=== PATIENT | female | born 1970 | race Caucasian/White ===

== ENCOUNTER 2018-01-31 12:51 | Emergency (ER) | payer BC ==
[2018-01-31 13:01] VITALS: BP 123/76
--- NOTE | 2018-01-31 13:15 | UC ---
Complaint Female HPI - HPI Summary HPI Summary: 47-year-old female presents with onset of dysuria, frequency, and urgency this morning. States symptoms have progressively worsened throughout the day. She denies any fevers, chills, back or flank pain, abdominal pain, foul-smelling or discolored urine, hematuria, or vaginal discharge. Last menstrual period was 5 days ago. with vasectomy. - History Of Current Complaint Chief Complaint: UCGU Stated Complaint: URINARY ISSUE Time Seen by Provider: 01/31/18 13:04 Hx Obtained From: Patient Hx Last Menstrual Period: 01/24/18 ?: No Onset/Duration: Gradual Onset Timing: Constant Severity Initially: Mild Severity Currently: Mild Pain Intensity: 3 - Risk Factors Ectopic Risk Factor: Negative Ovarian Torsion Risk Factor: Negative - Allergies/Home Medications Allergies/Adverse Reactions: Allergies Allergy/AdvReac Type Severity Reaction Status Date / Time No Known Allergies Allergy Verified 01/31/18 13:01 PMH/Surg Hx/FS Hx/Imm Hx - Additional Past Medical History Additional PMH: Noncontributory - Surgical History Surgical History: None - Family History Known Family History: Positive: Other - Noncontributory - Social History Occupation: Employed Part-time Lives: With Family Alcohol Use: None Substance Use Type: None Smoking Status (MU): Never Smoked Tobacco Review of Systems Constitutional: Negative Genitourinary: Dysuria, Frequency, Urgency Is Patient Immunocompromised?: No All Other Systems Reviewed And Are Negative: Yes Physical Exam Triage Information Reviewed: Yes Appearance: Well-Appearing, No Pain Distress, Well-Nourished Vital Signs: Initial Vital Signs Temp 98.1 F 01/31/18 12:57 Pulse 69 01/31/18 12:57 Resp 16 01/31/18 12:57 BP 123/76 01/31/18 12:57 Pulse Ox 99 01/31/18 12:57 Vital Signs Reviewed: Yes Respiratory: Positive: No respiratory distress Abdomen Description: Positive: Nontender, No Organomegaly, Soft. Negative: CVA Tenderness (R), CVA Tenderness (L) Bowel Sounds: Positive: Present Neurological: Positive: Alert Skin Exam: Normal Diagnostics - Laboratory Diagnostic Studies Completed/Ordered: Point of care urinalysis shows positive leukocytosis esterase and blood Complaint Female Dx - Course Course Of Treatment: 47-year-old female with onset of urinary tract infection symptoms this morning. [id number] urinalysis shows positive leukocyte esterase and blood. We will treat with nitrofurantoin twice a day for 5 days. Pyridium 1 tab 3 times a day for 2 days. Follow-up with primary care provider as needed. - Differential Dx/Diagnosis Provider Diagnoses: acute urinary cystits with hematuria Discharge - Sign-Out/Discharge Documenting (check all that apply): Patient Departure - Discharge Plan Condition: Stable Disposition: HOME Prescriptions: Nitrofurantoin Macrocrystal [Nitrofurantoin] 100 mg PO BID #10 capsule Phenazopyridine TAB* [Pyridium 100 mg TAB*] 100 mg PO TID #6 tab Patient Education Materials: Urinary Tract Infection in Women (DC) Referrals: Erwin Grady MD [Primary Care Provider] - If Needed Additional Instructions: Take antibiotics as prescribed. Take Pyridium 1 tab 3 times a day for the next 2 days. Be aware that this will turn her urine orange. We will send a urine culture today to see what bacteria grossly out and make sure that it is sensitive to the antibiotic he been prescribed. Be aware this will take 48-72 hours to keep his results. Drink plenty of fluids. To help prevent urinary tract infections in the future be sure you are wiping from front to back and be sure to urinate after intercourse. Follow-up with primary care provider if no improvement in symptoms. - Billing Disposition and Condition Condition: STABLE Disposition: Home
--- NOTE | 2018-02-02 21:22 | UC ---
- Progress Note Progress Note: Urine culture final with e coli indeterminate resistance to Macrobid. Please call pt and switch to Bactrim BID for 5 days. Rx sent Discharge - Sign-Out/Discharge Documenting (check all that apply): Post-Discharge Follow Up - Discharge Plan Condition: Stable Disposition: HOME Prescriptions: Nitrofurantoin Macrocrystal [Nitrofurantoin] 100 mg PO BID #10 capsule Phenazopyridine TAB* [Pyridium 100 mg TAB*] 100 mg PO TID #6 tab Sulfamethox/Trimethoprim DS* [Bactrim DS 800/160 TAB*] 1 tab PO BID #10 tab Patient Education Materials: Urinary Tract Infection in Women (DC) Referrals: Erwin Grady MD [Primary Care Provider] - If Needed Additional Instructions: Take antibiotics as prescribed. Take Pyridium 1 tab 3 times a day for the next 2 days. Be aware that this will turn her urine orange. We will send a urine culture today to see what bacteria grossly out and make sure that it is sensitive to the antibiotic he been prescribed. Be aware this will take 48-72 hours to keep his results. Drink plenty of fluids. To help prevent urinary tract infections in the future be sure you are wiping from front to back and be sure to urinate after intercourse. Follow-up with primary care provider if no improvement in symptoms. - Billing Disposition and Condition Condition: STABLE Disposition: Home
== END 2018-01-31 13:50 | disposition home or self-care (01) ==
LOC: UCEAST 12:51
DX: N30.01 Acute cystitis with hematuria (principal)
CPT/HCPCS: 81003; 87077; 87086; 87186; 99212; G0463

== ENCOUNTER 2018-02-22 10:45 | Emergency (ER) | payer BC ==
[2018-02-22 11:09] VITALS: BP 106/63
--- NOTE | 2018-02-22 11:18 | UC ---
Bite Injury/Animal HPI - HPI Summary HPI Summary: cat bite to left foot near great toe-last night--she accidentally stepped on her cat in the dark---cat has been vaccinated and patient is up to date on tetanus - History of Current Complaint Chief Complaint: UCBiteInjury Stated Complaint: CAT BITE Time Seen by Provider: 02/22/18 11:11 Hx Obtained From: Patient Hx Last Menstrual Period: 02/22/18 ?: No Pain Intensity: 1 Pain Scale Used: 0-10 Numeric Onset/Duration: Sudden Onset Type of Bite: Pet Has Animal Been Immunized?: Yes Character: Puncture Aggravating Factor(s): Nothing Alleviating Factor(s): Nothing Associated Signs And Symptoms: Positive: Negative Animal Available for Observation: Yes Animal Control Notified: Yes - Allergies/Home Medications Allergies/Adverse Reactions: Allergies Allergy/AdvReac Type Severity Reaction Status Date / Time No Known Allergies Allergy Verified 02/22/18 11:04 PMH/Surg Hx/FS Hx/Imm Hx Previously Healthy: Yes - Surgical History Surgical History: None - Family History Known Family History: Positive: Other - Noncontributory - Social History Occupation: Employed Part-time Lives: With Family Alcohol Use: None Substance Use Type: None Smoking Status (MU): Never Smoked Tobacco Review of Systems Constitutional: Negative Skin: Bruising - left great toe Eyes: Negative ENT: Negative Respiratory: Negative Cardiovascular: Negative Gastrointestinal: Negative Genitourinary: Negative Motor: Negative Neurovascular: Negative Musculoskeletal: Negative Neurological: Negative Psychological: Negative Is Patient Immunocompromised?: No All Other Systems Reviewed And Are Negative: Yes Physical Exam Triage Information Reviewed: Yes Appearance: Well-Appearing, No Pain Distress, Well-Nourished Vital Signs: Initial Vital Signs Temp 98.4 F 02/22/18 11:05 Pulse 70 02/22/18 11:05 Resp 16 02/22/18 11:05 BP 106/63 02/22/18 11:05 Pulse Ox 100 02/22/18 11:05 Vital Signs Reviewed: Yes Eye Exam: Normal Eyes: Positive: Conjunctiva Clear ENT Exam: Normal ENT: Positive: Normal ENT inspection, Hearing grossly normal. Negative: Trismus , Muffled voice, Hoarse voice Dental Exam: Normal Neck exam: Normal Neck: Positive: Supple, Nontender Respiratory Exam: Normal Respiratory: Positive: No respiratory distress, No accessory muscle use Cardiovascular Exam: Normal Cardiovascular: Positive: RRR, Pulses Normal, Brisk Capillary Refill Musculoskeletal Exam: Normal Neurological Exam: Normal Psychological Exam: Normal Skin: Positive: Other - 2 pw with bruising near left great toe Bite Injury Course/Dx - Course Course Of Treatment: warm soaks, post op shoe for comfort, augmentin follow with pcp prn - Differential Dx/Diagnosis Provider Diagnoses: cat bite left foot Discharge - Sign-Out/Discharge Documenting (check all that apply): Patient Departure All imaging exams completed and their final reports reviewed: No Studies - Discharge Plan Condition: Stable Disposition: HOME Prescriptions: Amoxicillin/Clavulanate TAB* [Augmentin TAB 875*] 875 mg PO BID #20 tab Patient Education Materials: Animal Bite (ED), Warm Compress or Soak (ED) Referrals: Erwin Grady MD [Primary Care Provider] - If Needed - Billing Disposition and Condition Condition: STABLE Disposition: Home
== END 2018-02-22 11:45 | disposition home or self-care (01) ==
LOC: UCEAST 10:45
DX: S90.872A Other superficial bite of left foot, initial encounter (principal); W55.01XA Bitten by cat, initial encounter; Y92.9 Unspecified place or not applicable
CPT/HCPCS: 99212; G0463